=== PATIENT | female | born 1990 | race Caucasian/White ===

== ENCOUNTER 2018-05-10 17:14 | Emergency (ER) | payer OTHER ==
--- NOTE | 2018-05-10 17:41 | ED ---
Substance Abuse/Use - HPI Summary HPI Summary: This patient is a 28 year old female presenting to the emergency department accompanied by her boyfriend Guy after she overdosed on heroin. Her boyfriend states he was driving while his girlfriend injected heroin and became unresponsive for about 5 minutes. Her boyfriend attempted rescue breaths without success. He drove directly to the ED at this time and she became responsive upon arrival. She states she was not drinking and has not taken any other drugs at today. She has not been to rehab and does not do heroin often. She has been on oxycodone in the past after a negative MRI it was stopped. She states since then her pain is not controlled with just lyrica. She has overdosed in the past. He reports alopecia, inflammatory disorder, and RN AMBULATORY disorder. - History Of Current Complaint Chief Complaint: EDOverdose Stated Complaint: OVERDOSE Time Seen by Provider: 05/10/18 17:26 Hx Obtained From: Patient, Family/Professor In Family Studies Onset/Duration of Drug/ETOH Abuse: Minutes Ingestion History: Type/Name Of Drug - heroin. Overdose Characteristics: IV Timing Of Abuse: Intermittent Severity Initially: Severe Severity Currently: Moderate Character: Stuporous Associated Signs And Symptoms: Other: - LOC - Allergies/Home Medications Allergies/Adverse Reactions: Allergies Allergy/AdvReac Type Severity Reaction Status Date / Time No Known Allergies Allergy Verified 12/08/17 14:46 PMH/Surg Hx/FS Hx/Imm Hx Endocrine/Hematology History: Denies: Hx Blood Transfusions Cardiovascular History: Reports: Hx Hypercholesterolemia, Hx Hypertension GI History: Reports: Hx Gastroesophageal Reflux Disease, Other GI Disorders - elevated LFT's d/t fatty liver Musculoskeletal History: Reports: Hx Back Problems, Hx Fibromyalgia Neurological History: Reports: Hx Migraine Psychiatric History: Reports: Hx Anxiety, Hx Depression - Surgical History Surgery Procedure, Year, and Place: IMPLANT FOR CONTROL IMPLETNON - Immunization History Date of Tetanus Vaccine: unk Infectious Disease History: No Infectious Disease History: Denies: Traveled Outside the [place] in Last 30 Days - Family History Known Family History: Positive: Cardiac Disease, Diabetes - Social History Alcohol Use: Weekly Alcohol Amount: 3 drinks/wk Substance Use Type: Reports: None Hx Tobacco Use: Yes Smoking Status (MU): Heavy Every Day Tobacco Smoker Type: Cigarettes Amount Used/How Often: 10 cig per day Review of Systems Negative: Fever Positive: Syncope - due to heroin use All Other Systems Reviewed And Are Negative: Yes Physical Exam - Summary Physical Exam Summary: GENERAL: Patient is a well-developed and nourished F who is lying comfortable in the stretcher. Patient is tearful HEAD AND FACE: Normocephalic EYES: PERRLA, EOMI x 2. EARS: Hearing grossly intact. MOUTH: Oropharynx within normal limits. NECK: Supple, trachea is midline, no adenopathy, no JVD, no carotid bruit. CHEST: Symmetric, no tenderness at palpation LUNGS: Clear to auscultation bilaterally. No wheezing or crackles. CVS: Regular rate and rhythm, S1 and S2 present, no murmurs or gallops appreciated. ABDOMEN: Soft, non-tender. Bowel sounds are normal. No abdominal abnormal pulsations. EXTREMITIES: Full ROM in all major joints, no edema, no cyanosis or clubbing. NEURO: Alert and oriented x 3. No acute neurological deficits. Speech is normal and follows commands. SKIN: Dry and warm Triage Information Reviewed: Yes Vital Signs On Initial Exam: Initial Vitals Temp Pulse Resp BP Pulse Ox 98.6 F 111 24 153/96 97 05/10/18 17:19 05/10/18 17:19 05/10/18 17:19 05/10/18 17:19 05/10/18 17:19 Vital Signs Reviewed: Yes Diagnostics - Vital Signs Vital Signs Temp Pulse Resp BP Pulse Ox 05/10/18 17:19 98.6 F 111 24 153/96 97 - Laboratory Lab Statement: Any lab studies that have been ordered have been reviewed, and results considered in the medical decision making process. Course/Dx - Course Course Of Treatment: This patient is a 28 year old female presenting to the emergency department accompanied by her boyfriend Guy after she overdosed on heroin. The patient did not receive narcan and will be watched in the ED to insure she is stable. The patient will be signed out to Dr. Hansen for observation in the ED. Assessment/Plan: No narcan required. AAO after 2hrs. D/c with narcan and f/u with [facility]. - Diagnoses Differential Diagnosis/HQI/PQRI: Positive: Anxiety, Depression, Drug Abuse, Metabolic Disorder Provider Diagnoses: Heroin overdose Discharge - Sign-Out/Discharge Documenting (check all that apply): Sign-Out Patient Signing out patient TO: Low Tyrone Patient Received Moderate/Deep Sedation with Procedure: No - Discharge Plan Condition: Stable Disposition: HOME Prescriptions: Naloxone Nasal [place]* [Narcan Nasal [place]] 4 mg NASAL ONCE PRN #1 unit PRN Reason: overdose Patient Education Materials: Opioid Safety (ED), Caffeine Use (ED) Referrals: [facility],. [Z.BUSINESS, APPLICATION, OTHER] - Additional Instructions: Use street drugs. Do not drive today. You have been given referral to [facility] that can help with your addiction and also your pain. Call first thing in the morning to schedule appointment. - Billing Disposition and Condition Condition: STABLE Disposition: Home - Attestation Statements Document Initiated by Scribe: Yes Documenting Scribe: Jacoby Carias Provider For Whom Slick is Documenting (Include Credential): Keven Argueta MD Scribe Attestation: Jacoby Stein , scribed for Keven Argueta MD on 05/11/18 at 1101. Scribe Documentation Reviewed: Yes Provider Attestation: The documentation as recorded by the Jacoby richard accurately reflects the service I personally performed and the decisions made by me, Keven Argueta MD Status of Scribe Document: Viewed
--- NOTE | 2018-05-10 19:12 | ED ---
Progress - Progress Note Progress Note: Receiving sign out from Dr. Argueta, pending observation. Pt will be discharged with a final dx of heroin overdose. Course/Dx - Course Course Of Treatment: Nurse's notes reviewed. Patient sobered and was observed for 2 hours in the ER. She developed no other symptoms. She is given a prescription for Narcan and referral to [facility] which can treat her pain and also addiction. - Diagnoses Provider Diagnoses: Heroin overdose Discharge - Sign-Out/Discharge Documenting (check all that apply): Patient Departure - Discharge, Receiving Sign-Out Receiving patient FROM: Keven Argueta - Discharge Plan Condition: Stable Disposition: HOME Prescriptions: Naloxone Nasal [place]* [Narcan Nasal [place]] 4 mg NASAL ONCE PRN #1 unit PRN Reason: overdose Patient Education Materials: Opioid Safety (ED), Caffeine Use (ED) Referrals: [facility],. [Z.BUSINESS, APPLICATION, OTHER] - Additional Instructions: Use street drugs. Do not drive today. You have been given referral to [facility] that can help with your addiction and also your pain. Call first thing in the morning to schedule appointment. - Billing Disposition and Condition Condition: STABLE Disposition: Home - Attestation Statements Document Initiated by Scribe: Yes Documenting Scribe: Juliane Cochran Provider For Whom Scribe is Documenting (Include Credential): Low Hansen MD Scribe Attestation: Juliane Stein, scribed for Low Hansen MD on 05/10/18 at 2018. Scribe Documentation Reviewed: Yes Provider Attestation: The documentation as recorded by the Juliane richard accurately reflects the service I personally performed and the decisions made by , Low Hansen MD Status of Scribe Document: Viewed
[2018-05-10 19:21] VITALS: BP 137/73
== END 2018-05-10 19:20 | disposition home or self-care (01) ==
LOC: ED 17:14
DX: T40.1X1A Poisoning by heroin, accidental (unintentional), initial encounter (principal); R55 Syncope and collapse; Y92.810 Car as the place of occurrence of the external cause; F17.210 Nicotine dependence, cigarettes, uncomplicated
CPT/HCPCS: 99283

== ENCOUNTER 2018-05-11 13:15 | Emergency (ER) | payer OTHER ==
--- NOTE | 2018-05-11 16:25 | ED ---
Upper Extremity Pain - HPI Summary HPI Summary: patient is a 28-year-old female who presents emergency department for possible foreign body in left hand. Patient states she injected heroin into her left hand yesterday and believes the needle broke off into left hand. Patient complains of pain to left hand. She states she has been scratching area return to the medial out today. She otherwise denies fever, chills, chest pain, shortness of breath. Patient was actually seen in the ER yesterday for overdose and was referred [facility]. Symptoms are mild in severity. No current modifying factors. - History of Current Complaint Chief Complaint: EDExtremityUpper Stated Complaint: POSS F/O IN LEFT HAND Time Seen by Provider: 05/11/18 15:51 Hx Obtained From: Patient - Allergies/Home Medications Allergies/Adverse Reactions: Allergies Allergy/AdvReac Type Severity Reaction Status Date / Time acetaminophen [From Tylenol] Allergy Hives/Diff. Verified 05/11/18 13:21 Breathing/I tching Home Medications: Home Medications Ondansetron TAB* [Zofran 4 MG Tab*] 4 mg PO Q6H PRN 05/11/18 [History Confirmed 05/11/18] PMH/Surg Hx/FS Hx/Imm Hx Previously Healthy: Yes Endocrine/Hematology History: Denies: Hx Blood Transfusions Cardiovascular History: Reports: Hx Hypercholesterolemia, Hx Hypertension GI History: Reports: Hx Gastroesophageal Reflux Disease, Other GI Disorders - elevated LFT's d/t fatty liver Musculoskeletal History: Reports: Hx Back Problems, Hx Fibromyalgia Neurological History: Reports: Hx Migraine Psychiatric History: Reports: Hx Anxiety, Hx Depression - Surgical History Surgery Procedure, Year, and Place: IMPLANT FOR CONTROL IMPLETNON - Immunization History Date of Tetanus Vaccine: unk Infectious Disease History: No Infectious Disease History: Denies: Traveled Outside the [place] in Last 30 Days - Family History Known Family History: Positive: Cardiac Disease, Diabetes - Social History Occupation: Employed Full-time Lives: With Family Alcohol Use: Weekly Alcohol Amount: 3 drinks/wk Substance Use Type: Reports: Other Substance Use Comment - Amount & Last Used: opiods Hx Tobacco Use: Yes Smoking Status (MU): Heavy Every Day Tobacco Smoker Type: Cigarettes Amount Used/How Often: 10 cig per day Review of Systems Positive: Other - pain right hand All Other Systems Reviewed And Are Negative: Yes Physical Exam Triage Information Reviewed: Yes Vital Signs On Initial Exam: Initial Vitals Temp Pulse Resp BP Pulse Ox 97.6 F 86 17 151/87 98 05/11/18 13:18 05/11/18 13:18 05/11/18 13:18 05/11/18 13:18 05/11/18 13:18 Vital Signs Reviewed: Yes Appearance: Positive: Well-Appearing - Pt. sitting on bed in NAD. Skin: Positive: Warm, Dry Head/Face: Positive: Normal Head/Face Inspection Eyes: Positive: Normal, EOMI Neck: Positive: Supple Musculoskeletal: Positive: Other - superficial abrasion to dorsum of right hand. Minimally tender. No erythema, edema, drainage. Full ROM of digits and wrist. Neurological: Positive: Normal, CN Intact II-III Psychiatric: Positive: Affect/Mood Appropriate Diagnostics - Vital Signs Vital Signs Temp Pulse Resp BP Pulse Ox 05/11/18 13:18 97.6 F 86 17 151/87 98 - Laboratory Lab Statement: Any lab studies that have been ordered have been reviewed, and results considered in the medical decision making process. Course/Dx - Course Course Of Treatment: Patient presenting for possible needle tip and left hand. No signs of infection on exam. Hand x-rays negative for foreign body or acute findings, reading per radiology. Results discussed. Patient states she is going to be following up with [facility]. Advised to continue wound care. Return to the ER for redness, swelling, drainage, increased pain. Patient understands and agrees with plan. - Diagnoses Provider Diagnoses: Injection site irritation, IV drug user Discharge - Sign-Out/Discharge Documenting (check all that apply): Patient Departure Patient Received Moderate/Deep Sedation with Procedure: No - Discharge Plan Condition: Good Disposition: HOME Patient Education Materials: Acute Wound Care (ED) Forms: *Work Release Referrals: Linette Marie [Primary Care Provider] - Additional Instructions: Follow up with PCP and [facility] as scheduled Keep wound clean and dry Return to ER for redness, swelling, drainage, increased pain or if concerned - Billing Disposition and Condition Condition: GOOD Disposition: Home
[2018-05-11 16:55] VITALS: BP 142/79
== END 2018-05-11 16:54 | disposition home or self-care (01) ==
LOC: ED 13:15
DX: F19.10 Other psychoactive substance abuse, uncomplicated (principal); S60.511A Abrasion of right hand, initial encounter; X58.XXXA Exposure to other specified factors, initial encounter
CPT/HCPCS: 99282

== ENCOUNTER 2019-04-19 10:07 | Emergency (ER) | payer OTHER ==
--- NOTE | 2019-04-19 10:24 | ED ---
Allergic Reaction/Systemic - HPI Summary HPI Summary: This patient is a 29 year old female presenting to [facility] with a chief complaint of allergic reaction since 2 days ago. She states swelling, redness and pain to R arm up to shoulder, noted red with some open areas. She states she had bloodwork done 3 days ago on that arm. She reports SOB. Pt states very anxious, but believes the SOB is separate. Reports sore throat with tightness. Denies of contact or ingestion of unknown new substances. She states she has never had these symptoms before. She denies vomiting and diarrhea. She states she takes Zyrtec and Benadryl. She states she did not take Benadryl today. She reports heart palpitations. She states her LNMP was within the last month. Medications reviewed, allergies noted. - History of Current Complaint Chief Complaint: EDAllergicReaction Time Seen by Provider: 04/19/19 10:17 Hx Obtained From: Patient Onset/Duration: Started days ago Pain Intensity: 10 Pain Scale Used: 0-10 Numeric Character: Swelling, Pain - Allergies/Home Medications Allergies/Adverse Reactions: Allergies Allergy/AdvReac Type Severity Reaction Status Date / Time No Known Allergies Allergy Verified 04/19/19 10:15 Home Medications: Home Medications Ibuprofen TAB* [Advil TAB*] 200 mg PO Q6H PRN 04/19/19 [History Confirmed ] PMH/Surg Hx/FS Hx/Imm Hx Endocrine/Hematology History: Denies: Hx Blood Transfusions Cardiovascular History: Reports: Hx Hypercholesterolemia, Hx Hypertension GI History: Reports: Hx Gastroesophageal Reflux Disease, Other GI Disorders - elevated LFT's d/t fatty liver Musculoskeletal History: Reports: Hx Back Problems, Hx Fibromyalgia Neurological History: Reports: Hx Migraine Psychiatric History: Reports: Hx Anxiety, Hx Depression - Surgical History Surgery Procedure, Year, and Place: IMPLANT FOR CONTROL IMPLETNON - Immunization History Date of Tetanus Vaccine: unk Infectious Disease History: No Infectious Disease History: Denies: Traveled Outside the [place] in Last 30 Days - Family History Known Family History: Positive: Cardiac Disease, Diabetes - Social History Alcohol Use: Weekly Alcohol Amount: 3 drinks/wk Substance Use Type: Reports: Other Substance Use Comment - Amount & Last Used: opiods Hx Tobacco Use: Yes Smoking Status (MU): Heavy Every Day Tobacco Smoker Type: Cigarettes Amount Used/How Often: 10 cig per day Review of Systems Positive: Palpitations Positive: Shortness Of Breath Negative: Vomiting, Diarrhea Positive: Rash - with swelling and pain Positive: Anxious All Other Systems Reviewed And Are Negative: Yes Physical Exam - Summary Physical Exam Summary: Constitutional: Well-developed, Well-nourished, Alert. (-) Distressed Skin: Warm, Dry. Right forearm is swollen, but no obvious tense compartments. Scaly erythemetous rash pruritic from right elbow to wrist. No pain from passive extension or flexion of the wrist. Hives on left forearm. HENT: Normocephalic; Atraumatic Eyes: Conjunctiva normal Neck: Musculoskeletal ROM normal neck. (-) JVD, (-) Stridor, (-) Tracheal deviation Cardio: Rhythm regular, rate normal, Heart sounds normal; Intact distal pulses; Radial pulses are 2+ and symmetric. (-) Murmur Pulmonary/Chest wall: Effort normal. (-) Respiratory distress, (-) Wheezes, (-) Rales Abd: Soft, (-) tenderness, (-) Distension, (-) Guarding, (-) Rebound Musculoskeletal: (-) Edema Lymph: (-) Cervical adenopathy Neuro: Alert, Oriented x3 Psych: Appears anxious Triage Information Reviewed: Yes Vital Signs On Initial Exam: Initial Vitals Temp Pulse Resp BP Pulse Ox 98.0 F 81 18 120/81 98 04/19/19 10:12 04/19/19 10:12 04/19/19 10:12 04/19/19 10:12 04/19/19 10:12 Vital Signs Reviewed: Yes Procedures - Sedation Patient Received Moderate/Deep Sedation with Procedure: No Diagnostics - Vital Signs Vital Signs Temp Pulse Resp BP Pulse Ox 04/19/19 10:12 98.0 F 81 18 120/81 98 - Laboratory Result Diagrams: 04/19/19 10:36 04/19/19 10:36 Lab Statement: Any lab studies that have been ordered have been reviewed, and results considered in the medical decision making process. Re-Evaluation - Re-Evaluation First Eval Re-Evaluation Time: 11:58 Comment: Feeling much better, is now able to move her left wrist and elbow. Allergic Reaction Course/Dx - Course Course Of Treatment: Patient is here with swelling and pain in her right forearm. Patient had blood drawn roughly 2 days ago and has had worsening pain and swelling in that arm. Patient has last couple areas of hives. Due to patient's allergic reaction and feeling of shortness of breath, patient was given Benadryl and Solu-Medrol. Patient initially refused to move her right arm at the elbow and at the wrist. Patient is complaining of numbness and tingling in her arm. Patient did have a palpable radial pulse. Patient had blood performed showed an elevated CRP. Patient is given a dose of clindamycin for suspected thrombophlebitis from the blood draw. Patient was given 8 mg of morphine with fast improvement in her symptoms. Patient was able to range at the elbow and the wrist. Patient was discharged clindamycin. Patient was initially discharged with hydrocodone but then the pharmacist called and states she is on suboxone which patient never told me. - Diagnoses Provider Diagnoses: Thrombophlebitis, Hives Discharge ED - Sign-Out/Discharge Documenting (check all that apply): Patient Departure - Discharge - Discharge Plan Condition: Stable Disposition: HOME Prescriptions: Clindamycin Cap(NF) [Clindamycin Cap 300 mg Cap(NF)] 300 mg PO TID 7 Days #21 cap HYDROcodone/ACETAMIN 5-325 MG* [[place] 5-325 TAB*] 1 tab PO Q6H PRN #12 tab MDD 3 tablets PRN Reason: Pain - Severe Patient Education Materials: Superficial Thrombophlebitis (ED) Referrals: Leigh Curiel MD [Primary Care Provider] - Additional Instructions: Take your medications as prescribed, follow up with your primary care doctor to set up an appointment this week. Come back with worsening pain, worsening swelling, or you cannot move your arm, or any other concerning symptoms. - Billing Disposition and Condition Condition: STABLE Disposition: Home - Attestation Statements Document Initiated by Slick: Yes Documenting Robbyibe: Marlon Morelos Provider For Whom Slick is Documenting (Include Credential): Micah Mcclain MD Scribe Attestation: Marlon Stein scribed for Micah Mcclain MD on 04/19/19 at 1630. Scribe Documentation Reviewed: Yes Provider Attestation: The documentation as recorded by the Marlon richard accurately reflects the service I personally performed and the decisions made by Micah portillo MD Status of Scribe Document: Viewed
[2019-04-19] MEDS ORDERED: methylPREDNISolone 125 MG* 2 ML VIAL IV ONE (10:25)
[2019-04-19] MEDS ORDERED: Famotidine IV* 10 MG/ML 2 ML (20 mg) IV SLOW PU ONE (10:25)
[2019-04-19] MEDS ORDERED: Morphine 4 MG/ML VIAL (1 ml) 4 MG/ML VIAL IV ONE ×2 (10:25→11:27)
[2019-04-19] MEDS ORDERED: NS 0.9% 1000 ML** 1,000 ML IV ONE (10:25)
[2019-04-19] MEDS ORDERED: diPHENhydraMINE IV* 50 MG/ML 1 ml VIAL (BENADRYL) IV ONE (10:25)
[2019-04-19 10:47] LABS: ABS Eosinophils 0.2 10^3/ul (0-0.6); ABS Lymphocytes 1.3 10^3/ul (1.0-4.8); ABS Monocytes 0.5 10^3/ul (0-0.8); Hematocrit 42 % (35-47); Hemoglobin 14.4 g/dL (12.0-16.0); Lymphocyte % 16.3 %; Mean Corpuscular HGB Conc 35 g/dL (31-36); Mean Corpuscular Hemoglobin 30 pg (27-31); Mean Corpuscular Volume 85 fL (80-97); Mean Platelet Volume 8.7 fL (7.4-10.4); Nucleated Red Blood Cells % 0.1; Platelet Count 365 10^3/uL (150-450); Red Blood Count 4.86 10^6 /uL (3.70-4.87); Red Cell Distribution Width 14 % (10-15)
[2019-04-19 11:04] LABS: Albumin 4.4 g/dL (3.2-5.2); Albumin/Globulin Ratio 1.5 (1-3); BUN/Creatinine Ratio 17.6 (8-20); C Reactive Protein 71.3 mg/L (<8.01); Calcium 9.6 mg/dL (8.6-10.3); EGFR African American 94.4 (>60); Potassium 4.2 mmol/L (3.5-5.0); Total Bilirubin 0.7 mg/dL (0.2-1.0); Total Protein 7.4 g/dL (6.4-8.9)
[2019-04-19] MEDS ORDERED: Clindamycin VIAL(*) 450 MG in NS 0.9% 50 ML* 50 ML IVPB ONE (11:21)
[2019-04-19] MEDS ORDERED: NS 0.9% 50 ML* 50 ML ONE (11:37)
[2019-04-19] MEDS ORDERED: Clindamycin 300 MG IVPREMIX* 300 MG/50 ML SDV IVPB ONE (12:00)
[2019-04-19 12:23] VITALS: BP 126/66
== END 2019-04-19 12:30 | disposition home or self-care (01) ==
LOC: ED 10:07
DX: I80.8 Phlebitis and thrombophlebitis of other sites (principal); L50.9 Urticaria, unspecified; F17.210 Nicotine dependence, cigarettes, uncomplicated; E78.00 Pure hypercholesterolemia, unspecified; I10 Essential (primary) hypertension; K21.9 Gastro-esophageal reflux disease without esophagitis; F41.9 Anxiety disorder, unspecified; F32.9 Major depressive disorder, single episode, unspecified
CPT/HCPCS: 36415; 80053; 85025; 86140; 96361; 96365; 96375; 96376; 99282; J1200; J2270; J2930